=== PATIENT | female | born 1975 | race Hispanic/Latino ===

== ENCOUNTER → 2016-09-10 | Outpatient (CLI) | payer OTHER ==
--- NOTE | 2016-09-10 17:46 | EKG ---
[address] [place] [address] Measurements Intervals [place] Rate: 83 P: 18 FL: 130 QRS: 3 QRSD: 96 T: 29 QT: 399 QTc: 439 Interpretive Statements SINUS RHYTHM LOW QRS VOLTAGE IN PRECORDIAL LEADS [QRS DEFLECTION < 1.0 mV IN CHEST LEADS] No previous ECG available for comparison Electronically Signed On 09-11-16 07:46:36 MDT by Wilfred Chambers MD [email or web address]
== END ==
LOC: EKG 17:22
PROVIDERS: ATTEND Nurse Practitioner Psychiatric/Mental Health
DX: R07.9 Chest pain, unspecified (principal)
CPT/HCPCS: 93005; 93010